=== PATIENT | female | born 1965 | race African-American/Black ===

== ENCOUNTER 2021-10-26 06:05 | Day surgery (SDC) | payer OTHER ==
[2021-10-23 16:56] VITALS: BMI 29.1
[2021-10-26] MEDS ORDERED: EPINEPHrine 1:1,000 1,000 MCG/ML ML ONE (07:06)
[2021-10-26] MEDS ORDERED: DEXAMETHASONE SOD PHOSPHATE 10 MG/1 ML VIAL ONE (07:20)
[2021-10-26] MEDS ORDERED: ROPIVACAINE HCL/PF 100 MG/20 ML VIAL ONE (07:20)
[2021-10-26] MEDS ORDERED: MIDAZOLAM HCL 2 MG/2 ML SINGLE DOSE VIAL ONE (07:20)
[2021-10-26] MEDS ORDERED: PROPOFOL 20 ML ONE ×3 (07:36)
[2021-10-26] MEDS ORDERED: SUCCINYLCHOLINE CHLORIDE 200 MG/10 ML SYRINGE ONE (07:37)
[2021-10-26] MEDS ORDERED: DEXAMETHASONE SOD PHOSPHATE 4 MG/1 ML VIAL ONE (09:39)
[2021-10-26] MEDS ORDERED: KETOROLAC TROMETHAMINE 30 MG/1 ML VIAL ONE (09:39)
[2021-10-26] MEDS ORDERED: ONDANSETRON 4 MG/2 ML VIAL ONE (09:39)
[2021-10-26] MEDS ORDERED: ceFAZolin SODIUM 1 GM VIAL ONE (09:39)
[2021-10-26 10:21] VITALS: BP 145/78; PULSE 60; RESP 16; TEMP 98
== END 2021-10-26 10:21 | disposition home or self-care (01) ==
LOC: FASU 06:05
PROVIDERS: ATTEND Orthopaedic Surgery
PROC: 0RNJ4ZZ Release Right Shoulder Joint, Percutaneous Endoscopic Approach (ICD-10-PCS; 2021-10-26)
PROC: 0PB94ZZ Excision of Right Clavicle, Percutaneous Endoscopic Approach (ICD-10-PCS; 2021-10-26)
PROC: 0RBJ4ZZ Excision of Right Shoulder Joint, Percutaneous Endoscopic Approach (ICD-10-PCS; 2021-10-26)
PROC: 0LQ14ZZ Repair Right Shoulder Tendon, Percutaneous Endoscopic Approach (ICD-10-PCS; principal; 2021-10-26 08:30)
DX: M75.101 Unspecified rotator cuff tear or rupture of right shoulder, not specified as traumatic (principal); M75.01 Adhesive capsulitis of right shoulder; M75.41 Impingement syndrome of right shoulder; M19.011 Primary osteoarthritis, right shoulder; M65.811 Other synovitis and tenosynovitis, right shoulder; S43.431A Superior glenoid labrum lesion of right shoulder, initial encounter; X58.XXXA Exposure to other specified factors, initial encounter; Y93.9 Activity, unspecified; Y92.9 Unspecified place or not applicable
CPT/HCPCS: J1100

== ENCOUNTER 2021-11-11 17:13 | Emergency (ER) | payer OTHER ==
[2021-11-11 17:47] VITALS: BP 178/95; PULSE 67; RESP 18; TEMP 99.1; BMI 29.1
[2021-11-11] MEDS ORDERED: IBUPROFEN 400 MG TABLET (FP) PO ONE ×2 (18:06→18:14)
== END 2021-11-11 19:16 | disposition home or self-care (01) ==
LOC: FER 17:13
DX: M25.511 Pain in right shoulder (principal)
CPT/HCPCS: 73030-TC-RT-FY; 73060-TC-RT-FY; 99284-25